=== PATIENT | female | born 1975 | race Caucasian/White ===

== ENCOUNTER 2018-11-22 17:51 | Emergency (ER) | payer SELFPAY ==
[~2018-11-22] VITALS: Ht 160 cm; Wt 47.7 kg
[2018-11-22 18:06] VITALS: Ht 160 cm; Wt 47.7 kg
--- NOTE | 2018-11-22 18:15 | NUR ---
PT UNABLE TO COMPLETE SUICIDE ASSESSMENT AT THIS TIME DUE PT UNDER THE INFLUENCE OF DRUGS PER PT STATEMENT. PT IS UNABLE TO ANSWER QUESTIONS AT THIS TIME. CHARGE NURSE AND ATTENDING NOTIFIED. WILL REATTEMPT SUICIDE ASSESSMENT AT LATER TIME. ER CHARGE NURSE AWARE TO NOTIFIED MENTAL HEALTH NURSE TO REATTEMPT ASSESSMENT.
[2018-11-22 18:34] LABS: APPEARANCE CLEAR (CLEAR); COLOR YELLOW (YELLOW); GLUCOSE NEGATIVE (NEGATIVE); NITRITE NEGATIVE (NEGATIVE); PROTEIN 1+ mg/dL (NEGATIVE)
[2018-11-22 18:35] LABS: BILIRUBIN NEGATIVE (NEGATIVE); KETONE LARGE mg/dL (NEGATIVE); UROBILINOGEN NORMAL (NORMAL)
[2018-11-22 18:37] LABS: HCG URINE NEGATIVE (NEGATIVE)
[2018-11-22 18:39] LABS: BASOPHILS 0.3 % (0-2); EOSINOPHILS 0.1 % (0-7); HEMATOCRIT 34.2 % (36.0-48.0); HEMOGLOBIN 11.6 g/dL (12-16); IMMATURE GRANULOCYTES 0.3 % (0-5); LYMPHOCYTES 3.6 % (15-50); MCH 29.4 pg (26.0-34.0); MCHC 33.9 g/dL (31.0-37.0); MCV 86.6 fL (80.0-100.0); MEAN PLATELET VOLUME 9.8 fL (7.4-10.4); MONOCYTES 5.8 % (2-11); NEUTROPHILS 89.9 % (40-80); PLATELET COUNT 321 10x3/uL (130-400); RBC 3.95 10x6/uL (4.00-5.40); RDW 13.7 % (11.5-14.5); WBC 15.4 10x3/uL (4.8-10.8)
[2018-11-22 18:59] LABS: ALBUMIN 4.3 g/dL (3.4-5.0); ANION GAP 15.4 mmol/L (8-16); BILIRUBIN - TOTAL 1.1 mg/dL (0.2-1.3); CALCIUM 9.3 mg/dL (8.5-10.1); CARBON DIOXIDE 27.2 mmol/L (21.0-32.0); CREATININE - SERUM 1.2 mg/dL (0.6-1.3); MAGNESIUM - SERUM 1.8 mg/dL (1.8-2.4); POTASSIUM - SERUM 3.6 mmol/L (3.5-5.1); PROTEIN - SERUM 7.2 g/dL (6.4-8.2)
[2018-11-22 19:00] LABS: UDS - AMPHET POSITIVE QUAL (NEGATIVE); UDS - BARB NEGATIVE QUAL (NEGATIVE); UDS - BENZO NEGATIVE QUAL (NEGATIVE); UDS - COCAINE NEGATIVE QUAL (NEGATIVE); UDS - OPIATE NEGATIVE QUAL (NEGATIVE); UDS - PCP NEGATIVE QUAL (NEGATIVE); UDS - THC NEGATIVE QUAL (NEGATIVE)
--- NOTE | 2018-11-22 20:56 | NUR ---
PATIENT CONTINUES TO BE UNDER THE INFLUENCE OF DRUGS. UNABLE TO ASSESS PATIENT FOR SUICIDE RISK AT THIS TIME. CHARGE NURSE AND ATTENDING NOTIFIED AT THIS TIME.. WILL ATTEMPT ASSESSMENT AT A LATER TIME. [employer] TECH PAGED TO SIT WITH PATIENT FOR SAFETY PER [facility].
[2018-11-23 03:08] VITALS: BP 95/59
--- NOTE | 2018-11-23 08:53 | NUR ---
DR RODGERS NOTIFIED AND REVIEWED PT'S BEHAVIOR AND ASSESSMENT RESULTS, PT IS A LOW RISK PER DR. RODGERS. DR RODGERS STATED TO GIVE RESOURCES TO PT AT TIME OF DISCHARGE. NO FURTHER ORDERS AT THIS TIME. RESOURCES REVIEWED WITH PT AND SHE VERBALIZED UNDERSTANDING. PATIENT DENIES ANY DESIRE TO END HER LIFE AND IS ABLE TO VERBALIZE A PLAN FOR HER FUTURE.
--- NOTE | 2018-11-23 09:06 | NUR ---
PATIENT DENIES ANY THOUGHTS OF SUICIDE. PATIENT DOES ADMIT TO USING STREET DRUGS. STATES THAT SHE COULD STOP USING [employer] ANY TIME SHE WANTS TO AND STATES THAT SHE DOES WANT TO STOP. VERBALIZES A PLAN FOR THE FUTURE THAT INCLUDES MOVING TO [place] AND GETTING A FRESH START.
== END 2018-11-23 10:23 | disposition home or self-care (01) ==
LOC: D.ER 17:51
PROVIDERS: Family Medicine
DX: F15.151 Other stimulant abuse with stimulant-induced psychotic disorder with hallucinations (principal)

== ENCOUNTER 2020-07-26 14:22 | Emergency (ER) | payer SELFPAY ==
[~2020-07-26] VITALS: Ht 160 cm; Wt 59.1 kg
[2020-07-26 14:26] VITALS: Ht 160 cm; Wt 59.1 kg
[2020-07-26 15:15] LABS: UDS - AMPHET POSITIVE QUAL (NEGATIVE); UDS - BARB NEGATIVE QUAL (NEGATIVE); UDS - BENZO NEGATIVE QUAL (NEGATIVE); UDS - COCAINE NEGATIVE QUAL (NEGATIVE); UDS - OPIATE NEGATIVE QUAL (NEGATIVE); UDS - PCP NEGATIVE QUAL (NEGATIVE); UDS - THC POSITIVE QUAL (NEGATIVE)
[2020-07-26 15:19] LABS: BILIRUBIN NEGATIVE (NEGATIVE); KETONE SMALL mg/dL (NEGATIVE); NITRITE NEGATIVE (NEGATIVE); UROBILINOGEN NORMAL mg/dL (< 2)
[2020-07-26 15:24] LABS: BACTERIA MODERATE HPF (NONE SEEN)
[2020-07-26 15:54] VITALS: BP 150/80
== END 2020-07-26 16:26 | disposition home or self-care (01) ==
LOC: D.ER 14:22
PROVIDERS: Family Medicine
DX: F15.10 Other stimulant abuse, uncomplicated (principal); F22 Delusional disorders